=== PATIENT | female | born 1965 | race African-American/Black ===

== ENCOUNTER 2019-11-07 20:04 | Emergency (ER) | payer MEDICAID ==
[~2019-11-07] VITALS: Ht 152.4 cm; Wt 120.2 kg
[2019-11-07 22:46] VITALS: BP 127/76
== END 2019-11-08 00:14 | disposition home or self-care (01) ==
LOC: ER 20:06
DX: S61.011A Laceration without foreign body of right thumb without damage to nail, initial encounter (principal); D64.9 Anemia, unspecified; E11.9 Type 2 diabetes mellitus without complications; I10 Essential (primary) hypertension; Z98.890 Other specified postprocedural states; W26.8XXA Contact with other sharp object(s), not elsewhere classified, initial encounter; Y93.89 Activity, other specified; Y92.090 Kitchen in other non-institutional residence as the place of occurrence of the external cause; Y99.8 Other external cause status
CPT/HCPCS: 12002; 73130